=== PATIENT | female | born 1985 | race American Indian/Alaskan Native ===

== ENCOUNTER 2017-07-24 18:57 | Emergency (ER) | payer BC ==
[2017-07-24] MEDS ORDERED: Sodium Chloride 0.9% 10 ML Syringe FLUSH PRN (19:33)
[2017-07-24] MEDS ORDERED: Ketorolac 30 MG/ML SDV IVPUSH ONE (19:33)
--- NOTE | 2017-07-24 19:36 | EDM.PDOC ---
ED HPI GENERAL MEDICAL PROBLEM - General Chief Complaint: [employer] Problem Stated Complaint: MEDICAL VIA [facility] Time Seen by Provider: 07/24/17 19:23 Source of Information: Reports: Patient, Old Records, RN Notes Reviewed History Limitations: Reports: No Limitations - History of Present Illness INITIAL COMMENTS - FREE TEXT/NARRATIVE: EMS arrival, met here with her fianc and mother Received hydromorphone 0.5 mg and ondansetron 4 mg prior to arrival IV gland Chief complaint Abdominal pain 32-year-old female [facility] just before 2 PM this afternoon. Assessment she got home she had fairly sudden onset of bilateral upper abdominal pain associated with nausea but no vomiting or diarrhea. Unable to get comfortable. No effect of pain on breathing. No diarrhea no bowel movement today. Urination is more frequent smaller amounts today. No history of similar pain previously No vaginal bleeding or discharge No analgesics taken at home Lower Abdomen Pain Score (Numeric/FACES): 9 - Related Data Allergies Allergy/AdvReac Type Severity Reaction Status Date / Time No Known Allergies Allergy Verified 07/24/17 19:13 Home Meds: Home Meds Iron,Carbonyl [Iron Chews] 15 mg PO DAILY 07/24/17 [History] Pnv No.95/Ferrous Fum/Folic AC [ Multivitamin Tablet] 1 each PO DAILY [History] Past Medical History SU[employer] History: Reports: Musculoskeletal History: Reports: Fracture Hematologic History: Reports: Anemia, B12 Deficiency - Past Surgical History GI Surgical History: Reports: Bariatric Procedure Musculoskeletal Surgical History: Reports: Other (See Below) Other Musculoskeletal Surgeries/Procedures:: left arm fracture with surgery Social & Family History - Tobacco Use Smoking Status *Q: Never Smoker - Caffeine Use Caffeine Use: Reports: None - Recreational Drug Use Recreational Drug Use: No ED ROS GENERAL - Review of Systems Review Of Systems: See Below Constitutional: Reports: No Symptoms HEENT: Reports: No Symptoms Respiratory: Reports: No Symptoms Cardiovascular: Reports: No Symptoms GI/Abdominal: Reports: Abdominal Pain, Decreased Appetite, Nausea. Denies: Constipation, Diarrhea, Vomiting : Reports: Frequency, Other (Urinating smaller amounts). Denies: Dysuria, Flank Pain, Hematuria, Pain Musculoskeletal: Reports: No Symptoms Skin: Reports: No Symptoms Neurological: Reports: No Symptoms ED EXAM, GI/ABD - Physical Exam Exam: See Below Exam Limited By: No Limitations General Appearance: Alert, Anxious, Mild Distress, Other (Moaning and restless, vital signs within normal limits, difficulty speaking when the spells of pain become more intense) Eyes: Bilateral: Normal Appearance, EOMI Ears: Normal External Exam, Hearing Grossly Normal Nose: Normal Inspection Throat/Mouth: Normal Inspection, Normal Oropharynx, Normal Voice Head: Atraumatic, Normocephalic Neck: Normal Inspection Respiratory/Chest: No Respiratory Distress, Lungs Clear, Normal Breath Sounds, No Accessory Muscle Use Cardiovascular: Normal Peripheral Pulses, Regular Rate, Rhythm GI/Abdominal Exam: Normal Bowel Sounds, Soft, Tender (Bilateral upper quadrants) , Mass (Gravid uterus), Other ( heart rate 138). No: Rigid, Rebound Back Exam: Normal Inspection Extremities: Normal Inspection, Non-Tender Neurological: Alert, Oriented, No Motor/Sensory Deficits Psychiatric: Anxious Skin Exam: Warm, Dry, Intact, Normal Color Lymphatic: No Adenopathy Course - Vital Signs Last Recorded V/S: Last Vital Signs Temp 36.3 C 07/24/17 19:08 Pulse 91 07/24/17 21:54 Resp 16 07/24/17 20:37 BP 115/69 07/24/17 21:54 Pulse Ox 99 07/24/17 21:54 - Orders/Labs/Meds Orders: Active Orders 24 hr Category Date Time Status Peripheral IV Care [RC] . DIRECTED Care 07/24/17 19:33 Active Abdomen Ltd [US] Stat Exams 07/24/17 21:04 Taken Metoclopramide [Reglan] Med 07/24/17 22:43 Once 10 mg PO ONETIME ONE Sodium Chloride 0.9% [Normal Saline] 1,000 ml Med 07/24/17 19:45 Active IV ASDIRECTED Sodium Chloride 0.9% [Saline Flush] Med 07/24/17 19:33 Active 10 ml FLUSH ASDIRECTED PRN Peripheral IV Insertion Adult [OM.PC] Routine Oth 07/24/17 19:33 Ordered Medication Orders Sodium Chloride (Normal Saline) 1,000 mls @ 125 mls/hr IV ASDIRECTED MADELIN Last Admin: 07/24/17 19:53 Dose: 125 mls/hr Sodium Chloride (Saline Flush) 10 ml FLUSH ASDIRECTED PRN PRN Reason: Keep Vein Open Labs: Laboratory Tests 07/24/17 07/24/17 07/24/17 Range/Units 19:46 19:46 19:53 WBC 14.2 H (4.5-11.0) K/uL RBC 4.79 (3.30-5.50) M/uL Hgb 13.5 (12.0-15.0) g/dL Hct 40.0 (36.0-48.0) % MCV 84 (80-98) fL MCH 28 (27-31) pg MCHC 34 (32-36) % Plt Count 253 (150-400) K/uL Sodium 141 (140-148) mmol/L Potassium 3.7 (3.6-5.2) mmol/L Chloride 106 (100-108) mmol/L Carbon Dioxide 25 (21-32) mmol/L Anion Gap 10.3 (5.0-14.0) mmol/L BUN 6 L (7-18) mg/dL Creatinine 0.5 L (0.6-1.0) mg/dL Est Cr Clr Drug Dosing 168.95 mL/min Estimated GFR (MDRD) > 60 (>60) Glucose 120 H (74-106) mg/dL Calcium 8.2 L (8.5-10.1) mg/dL Total Bilirubin 0.4 (0.2-1.0) mg/dL AST 19 (15-37) U/L ALT 13 (12-78) U/L Alkaline Phosphatase 72 (46-116) U/L Total Protein 6.5 (6.4-8.2) g/dL Albumin 3.0 L (3.4-5.0) g/dL Globulin 3.5 (2.3-3.5) g/dL Albumin/Globulin Ratio 0.9 L (1.2-2.2) Lipase 74 (73-393) U/L Urine Color Yellow Urine Appearance Cloudy Urine pH 5.0 (4.5-8.0) Ur Specific [place] 1.030 (1.008-1.030) Urine Protein Negative (NEGATIVE) mg/dL Urine Glucose (UA) Normal (NEGATIVE) mg/dL Urine Ketones 150 H (NEGATIVE) mg/dL Urine Occult Blood Negative (NEGATIVE) Urine Nitrite Negative (NEGATIVE) Urine Bilirubin Negative (NEGATIVE) Urine Urobilinogen Normal (NORMAL) mg/dL Ur Leukocyte Esterase Negative (NEGATIVE) Urine RBC 0-5 (0-5) Urine WBC 0-5 (0-5) Ur Epithelial Cells Many Amorphous Sediment Not seen Urine Bacteria Rare Urine Mucus Many Urine Other Meds: Medications Generic Name Dose Route Start Last Admin Trade Name Benson PRN Reason Stop Dose Admin Sodium Chloride 1,000 mls @ 125 mls/hr 07/24/17 19:45 07/24/17 19:53 Normal Saline IV 125 mls/hr ASDIRECTED MADELIN Administration Sodium Chloride 10 ml 07/24/17 19:33 Saline Flush FLUSH ASDIRECTED PRN Keep Vein Open Discontinued Medications Generic Name Dose Route Start Last Admin Trade Name Freq PRN Reason Stop Dose Admin Ketorolac Tromethamine 15 mg 07/24/17 19:33 07/24/17 19:53 Toradol IVPUSH 07/24/17 19:34 15 mg ONETIME ONE Administration - Re-Assessments/Exams Free Text/Narrative Re-Assessment/Exam: 07/24/17 19:34 32-year-old female at 16 weeks gestation her first with fairly sudden onset of abdominal pain about 5 hours ago, shortly after her routine visit. Differential diagnosis includes biliary colic, renal colic, colitis, gastroenteritis among others Has already received hydromorphone 0.5 mg and ondansetron 4 mg from EMS Continue normal saline Toradol 15 mg IV 07/24/17 21:05 Appears more relaxed at this time, still has some discomfort Urinalysis normal Hepatic profile normal Elevated white count 14.6 but this is not uncommon in Ultrasound abdomen limited ordered 07/24/17 22:44 Ultrasound negative for gallstones, has had this previously There is considerable gas buildup Has not had a bowel movement today so likely has some degree of bile he is probably -induced No signs of any other acute injury, surgery no acute abdomen on exam although she is diffusely tender with no focal tenderness Much more comfortable at this time, will discharge home Start Reglan 10 mg by mouth 3 times a day to help with bowel movements High-fiber diet Follow-up with provider Departure - Departure Time of Disposition: 22:44 Disposition: Home, Self-Care 01 Condition: Good Clinical Impression: Abdominal pain during in second trimester, Motility disorder of intestine - Discharge Information Instructions: Abdominal Pain During , [id number] Referrals: Katie Lee CNM [Primary Care Provider] - Forms: ED Department Discharge Additional Instructions: Abdominal pain, examination tonight does not show any significant abnormalities on testing Nevertheless you do have generalized abdominal pain. There appears to be slow down in the intestine, this is common with Drink plenty of fluids A higher fiber diet rich in vegetables fruits and whole grains can help keep your intestinal transit regular You are being prescribed a few tablets of metoclopramide which helps with nausea and and also helps with intestinal movements. EKG continue to have pain in discomfort in , make sure you contact your provider - My Orders Last 24 Hours: My Active Orders 07/24/17 19:33 Peripheral IV Care [RC] . DIRECTED Sodium Chloride 0.9% [Saline Flush] 10 ml FLUSH ASDIRECTED PRN Peripheral IV Insertion Adult [OM.PC] Routine 07/24/17 19:45 Sodium Chloride 0.9% [Normal Saline] 1,000 ml IV ASDIRECTED 07/24/17 21:04 Qustreet Ltd [US] Stat 07/24/17 22:43 Metoclopramide [Reglan] 10 mg PO ONETIME ONE - Assessment/Plan Last 24 Hours: My Active Orders 07/24/17 19:33 Peripheral IV Care [RC] . DIRECTED Sodium Chloride 0.9% [Saline Flush] 10 ml FLUSH ASDIRECTED PRN Peripheral IV Insertion Adult [OM.PC] Routine 07/24/17 19:45 Sodium Chloride 0.9% [Normal Saline] 1,000 ml IV ASDIRECTED 07/24/17 21:04 Abdomen BlackArrow [US] Stat 07/24/17 22:43 Metoclopramide [Reglan] 10 mg PO ONETIME ONE
[2017-07-24] MEDS ORDERED: Sodium Chloride 0.9% 1,000 ML IV SCH (19:45)
[2017-07-24] MEDS ORDERED: Metoclopramide 10 MG Tab PO ONE (22:43)
== END 2017-07-24 23:16 | disposition home or self-care (01) ==
LOC: JP.ED 18:57
DX: O99.612 Diseases of the digestive system complicating pregnancy, second trimester (principal); K59.9 Functional intestinal disorder, unspecified; R10.11 Right upper quadrant pain; Z79.899 Other long term (current) drug therapy; Z3A.16 16 weeks gestation of pregnancy
CPT/HCPCS: 36415; 76705; 80053; 81001; 83690; 85027; 96361; 96374; 99284; A9270; J1885; J7040

== ENCOUNTER 2017-07-28 07:47 | Emergency (ER) | payer BC ==
[2017-07-28] MEDS ORDERED: Bisacodyl 10 MG Supp RECTAL ONE (08:32)
[2017-07-28] MEDS ORDERED: Polyethylene Glycol 3350 Powder 17 GM Packet PO ONE (08:33)
--- NOTE | 2017-07-28 08:41 | EDM.PDOC ---
ED HPI GENERAL MEDICAL PROBLEM - General Chief Complaint: Gastrointestinal Problem Stated Complaint: stomach pain with vomiting Time Seen by Provider: 07/28/17 08:25 Source of Information: Reports: Patient, RN History Limitations: Reports: No Limitations - History of Present Illness INITIAL COMMENTS - FREE TEXT/NARRATIVE: 32 yo female in the first trimester of an IUP presents with no BM since early in the week and vomiting if she eats or drinks anything. Saw her provider during the week and was prescribed Miralax without benefit. Has not tried enemas at home. Is on Iron supplements which is likely worsening her constipation. Emesis material is not fecal like, rather it looks like bile. Abdomen is tender, but not distended. Onset: Gradual Onset Date: 07/17/17 Duration: Day(s):, Getting Worse Location: Reports: Abdomen Quality: Reports: Ache Severity: Mild Improves with: Reports: None Worsens with: Reports: Eating (or drinking) Context: Reports: Other ( and on Iron supplementation) Associated Symptoms: Reports: Loss of Appetite, Nausea/Vomiting (no current nausea.). Denies: Fever/Chills Treatments TEST DESIGNER: Reports: Other (see below) (Miralax, not today) - Related Data Allergies Allergy/AdvReac Type Severity Reaction Status Date / Time No Known Allergies Allergy Verified 07/24/17 19:13 Home Meds: Home Meds Iron,Carbonyl [Iron Chews] 15 mg PO DAILY 07/24/17 [History] Metoclopramide HCl [Reglan] 10 mg PO TID PRN #10 tablet 07/24/17 [Rx] Pnv No.95/Ferrous Fum/Folic AC [ Multivitamin Tablet] 1 each PO DAILY [History] Promethazine [Phenadoz] 25 mg RECTAL Q6H PRN #10 supp 07/28/17 [Rx] Past Medical History [employer] History: Reports: Musculoskeletal History: Reports: Fracture Hematologic History: Reports: Anemia, B12 Deficiency - Past Surgical History GI Surgical History: Reports: Bariatric Procedure Musculoskeletal Surgical History: Reports: Other (See Below) Other Musculoskeletal Surgeries/Procedures:: left arm fracture with surgery Social & Family History - Tobacco Use Smoking Status *Q: Never Smoker - Caffeine Use Caffeine Use: Reports: None - Recreational Drug Use Recreational Drug Use: No ED ROS GENERAL - Review of Systems Review Of Systems: See Below Constitutional: Reports: No Symptoms HEENT: Reports: No Symptoms Respiratory: Reports: No Symptoms Cardiovascular: Reports: No Symptoms Endocrine: Reports: No Symptoms GI/Abdominal: Reports: Abdominal Pain, Constipation, Decreased Appetite, Nausea , Vomiting. Denies: Black Stool, Bloody Stool, Diarrhea, Difficulty Swallowing , Distension, Flatus, Hematemesis, Hematochezia, Melena : Reports: No Symptoms Musculoskeletal: Reports: No Symptoms Skin: Reports: No Symptoms Neurological: Reports: No Symptoms ED EXAM, GI/ABD - Physical Exam Exam: See Below Exam Limited By: No Limitations General Appearance: Alert, WD/WN, No Apparent Distress, Obese Eyes: Bilateral: Normal Appearance Ears: Normal External Exam, Normal Canal, Hearing Grossly Normal Nose: Normal Inspection, Normal Mucosa, No Blood Throat/Mouth: Normal Inspection, Normal Lips, Normal Oropharynx, Normal Voice, No Airway Compromise Head: Atraumatic, Normocephalic Neck: Normal Inspection Respiratory/Chest: No Respiratory Distress, Lungs Clear, Normal Breath Sounds, No Accessory Muscle Use Cardiovascular: Regular Rate, Rhythm, No Edema GI/Abdominal Exam: Normal Bowel Sounds, Soft, No Distention, Tender (mild diffuse, worse on the L side consistent with her descending colon. ) Back Exam: Normal Inspection Extremities: Normal Inspection, Normal Range of Motion, Non-Tender, No Pedal Edema Neurological: Alert, Oriented, CN II-XII Intact, Normal Cognition, No Motor/ Sensory Deficits Psychiatric: Normal Affect, Normal Mood Skin Exam: Warm, Dry, Intact, Normal Color, No Rash Lymphatic: No Adenopathy Course - Vital Signs Text/Narrative:: Got good relief with promethazine, not so much with the Zofran. No results with Dulcolax, only minimal stool out with enema. Last Recorded V/S: Last Vital Signs Temp 36.8 C 07/28/17 08:07 Pulse 100 07/28/17 08:07 Resp 14 07/28/17 08:07 BP 123/62 07/28/17 08:07 Pulse Ox 98 07/28/17 08:07 Orthostatic Blood Pressure [ 125/75 Standing] Orthostatic Blood Pressure [ 124/68 Sitting] Orthostatic Blood Pressure [ 123/64 Supine] - Orders/Labs/Meds Orders: Active Orders 24 hr Category Date Time Status Orthostatic Vital Signs [RC] ASDIRECTED Care 07/28/17 08:35 Active Meds: Medications Discontinued Medications Generic Name Dose Route Start Last Admin Trade Name Benson PRN Reason Stop Dose Admin Bisacodyl 10 mg 07/28/17 08:32 07/28/17 09:00 Dulcolax RECTAL 07/28/17 08:33 10 mg ONETIME ONE Administration Lactated Ringer's 1,000 mls @ 1,000 mls/hr 07/28/17 09:54 07/28/17 10:25 Ringers, Lactated IV 07/28/17 10:53 1,000 mls/hr BOLUS ONE Administration Lactated Ringer's 1,000 mls @ 1,000 mls/hr 07/28/17 11:46 07/28/17 12:34 Ringers, Lactated IV 07/28/17 12:45 1,000 mls/hr BOLUS ONE Administration Promethazine HCl 12.5 mg/ 50.5 mls @ 200 mls/hr 07/28/17 11:47 07/28/17 12:34 Sodium Chloride IV 07/28/17 12:02 Not Given NOW STA Promethazine HCl 12.5 mg/ 50.5 mls @ 150 mls/hr 07/28/17 12:30 07/28/17 12:34 Sodium Chloride IV 07/28/17 12:50 150 mls/hr NOW ONE Administration Magnesium Citrate 296 ml 07/28/17 13:57 07/28/17 14:17 Citrate Of Magnesia PO 07/28/17 13:58 296 ml ONETIME ONE Administration Ondansetron HCl 4 mg 07/28/17 09:13 07/28/17 09:21 Zofran Odt PO 07/28/17 09:14 4 mg ONETIME ONE Administration Polyethylene Glycol 34 gm 07/28/17 08:33 07/28/17 09:00 Miralax PO 07/28/17 08:34 34 gm ONETIME ONE Administration Sodium Biphosphate/Sodium Phosphate 133 ml 07/28/17 09:56 07/28/17 10:26 Fleet Enema RECTAL 07/28/17 09:57 133 ml ONETIME ONE Administration Departure - Departure Time of Disposition: 08:30 Disposition: Home, Self-Care 01 Condition: Good Clinical Impression: Dehydration Constipation Qualifiers: Constipation type: unspecified constipation type Qualified Code(s): K59.00 - Constipation, unspecified Nausea & vomiting Qualifiers: Vomiting type: unspecified Vomiting Intractability: non-intractable Qualified Code(s): R11.2 - Nausea with vomiting, unspecified - Discharge Information Prescriptions: Promethazine [Phenadoz] 25 mg RECTAL Q6H PRN #10 supp PRN Reason: Nausea Instructions: Constipation, Adult, [id number] Referrals: Nadja Alvarado PA [Primary Care Provider] - Forms: ED Department Discharge Additional Instructions: Take promethazine as needed for nausea. Drink the magnesium citrate bottle provided today. Take as much Miralax daily as you need to induce regular, soft stools. Recheck with your provider early in the week. OK to do Fleets enemas at home if needed. - My Orders Last 24 Hours: My Active Orders 07/28/17 08:35 Orthostatic Vital Signs [RC] ASDIRECTED - Assessment/Plan Last 24 Hours: My Active Orders 07/28/17 08:35 Orthostatic Vital Signs [RC] ASDIRECTED
[2017-07-28] MEDS ORDERED: Ondansetron 4 MG Tab.DIS PO ONE (09:13)
[2017-07-28] MEDS ORDERED: Lactated Ringers 1,000 ML IV ONE ×2 (09:54→11:46)
[2017-07-28] MEDS ORDERED: Sodium Phosphate,Monobasic/Sodium Phosphate,Dibasic Enema 133 ML Bottle RECTAL ONE (09:56)
[2017-07-28] MEDS ORDERED: Promethazine 12.5 MG in Sodium Chloride 0.9% 50 ML IV STA (11:47)
[2017-07-28] MEDS ORDERED: Promethazine 12.5 MG in Sodium Chloride 0.9% 50 ML IV ONE (12:30)
[2017-07-28] MEDS ORDERED: Magnesium Citrate Solution 296 ML Bottle PO ONE (13:57)
== END 2017-07-28 14:27 | disposition home or self-care (01) ==
LOC: JP.ED 07:47
DX: E86.0 Dehydration (principal); K59.00 Constipation, unspecified; R11.2 Nausea with vomiting, unspecified
CPT/HCPCS: 82271; 96361; 96365; 99284; A9270; J2550; J7050; J7120

== ENCOUNTER 2018-10-09 05:47 | Emergency (ER) | payer SELFPAY ==
--- NOTE | 2018-10-09 06:35 | EDM.PDOC ---
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 She is not taking anything for pain she is approximately 9 weeks intrauterine states she has had her initial ultrasound however those records are not available at this time. She does have a follow-up appointment with her OB in 2 days. No vaginal bleeding no discharge no cramping Treatments DYE TUB TENDER: Reports: Other (see below) Other Treatments DYE TUB TENDER: none Left groin Pain Score (Numeric/FACES): 6 - Related Data Allergies Allergy/AdvReac Type Severity Reaction Status Date / Time No Known Allergies Allergy Verified 10/09/18 06:03 Home Meds: Home Meds Iron,Carbonyl [Iron Chews] 15 mg PO DAILY 07/24/17 [History] Pnv No.95/Ferrous Fum/Folic AC [ Multivitamin Tablet] 1 each PO DAILY [History] Cyanocobalamin (Vitamin B-12) [Vitamin B-12] 1 tab PO DAILY 12/13/17 [History] Vitamin B Complex/Folic Acid [Vitamin B-100 Complex] 1 tab PO DAILY 12/13/17 [ History] Acyclovir 400 mg PO TID 12/20/17 [History] Past Medical History 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: Musculoskeletal History: Reports: Fracture Psychiatric History: Reports: Depression, Eating Disorders, Other (See Below) Other Psychiatric History: alcohol syndrome Hematologic History: Reports: Anemia, B12 Deficiency - Infectious Disease History Infectious Disease History: Reports: Chicken Pox, Herpes - Past Surgical History GI Surgical History: Reports: Bariatric Procedure Musculoskeletal Surgical History: Reports: Other (See Below) Other Musculoskeletal Surgeries/Procedures:: left arm fracture with surgery Social & Family History - Family History Family Medical History: Noncontributory - Tobacco Use Smoking Status *Q: Never Smoker Second Hand Smoke Exposure: No - Caffeine Use Caffeine Use: Reports: Soda - Recreational Drug Use Recreational Drug Use: No ED ROS GENERAL - Review of Systems Review Of Systems: See Below Constitutional: Reports: No Symptoms Respiratory: Reports: No Symptoms Cardiovascular: Reports: No Symptoms GI/Abdominal: Reports: Abdominal Pain : Reports: No Symptoms ED EXAM, GI/ABD - Physical Exam Exam: See Below Exam Limited By: No Limitations General Appearance: Alert, WD/WN, No Apparent Distress Respiratory/Chest: No Respiratory Distress GI/Abdominal Exam: Normal Bowel Sounds, Soft, Non-Tender, Other (Obese) Course - Vital Signs Last Recorded V/S: Last Vital Signs Temp 98.0 F 10/09/18 06:14 Pulse 84 10/09/18 06:14 Resp 14 10/09/18 06:14 BP 119/69 10/09/18 06:14 Pulse Ox 98 10/09/18 06:14 Departure - Departure Time of Disposition: 06:36 Disposition: Home, Self-Care 01 Condition: Fair Clinical Impression: Abdominal wall pain - Discharge Information Referrals: Nadja Alvarado PA [Primary Care Provider] - Forms: ED Department Discharge Additional Instructions: Use Tylenol as needed for pain control, please keep your appointment with your OB on Sunday - Assessment/Plan Plan: Assessment Acuity = acute Site and laterality = abdominal pain complicated than that in a patient that is currently 9 weeks Etiology = secondary lifting injury Manifestations = none Location of injury = work Lab values = none Plan Recommend symptomatic care at this time Tylenol as needed for pain control follow-up with primary care provider on Sunday of this week paperwork was completed This note was dictated using [employer] voice recognition software please call with any questions on syntax or grammar.
== END 2018-10-09 06:47 | disposition home or self-care (01) ==
LOC: JP.ED 05:47
DX: O99.89 Other specified diseases and conditions complicating pregnancy, childbirth and the puerperium (principal); R10.32 Left lower quadrant pain; Z79.899 Other long term (current) drug therapy; Z3A.09 9 weeks gestation of pregnancy; X50.0XXA Overexertion from strenuous movement or load, initial encounter
CPT/HCPCS: 99283

== ENCOUNTER 2019-01-01 01:29 | Emergency (ER) | payer SELFPAY ==
[2019-01-01] MEDS ORDERED: Acetaminophen 500 MG Tab PO ONE (03:14)
--- NOTE | 2019-01-01 03:14 | EDM.PDOC ---
ED HPI GENERAL MEDICAL PROBLEM - General Chief Complaint: Back Pain or Injury Stated Complaint: BACK PAIN Time Seen by Provider: 01/01/19 03:09 Source of Information: Reports: Patient History Limitations: Reports: No Limitations - History of Present Illness INITIAL COMMENTS - FREE TEXT/NARRATIVE: 33 years old female patient presents to the ER with a chief complaint of low back pain. 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 Slightly to the right. No radiation. Denies any weakness or numbness in her legs. No perineal numbness. Denies any urinary symptom. No loss of control of urine or stool. Denies any fall or any other injuries. Pain is worse with bending twisting. Better when she stays still. She is to anywhere in weeks' . Denies any vaginal discharge or bleeding. Denies any abdominal pain. Denies any chest pain shortness breath. The patient was up in the OB floor for baby monitoring and was cleared. Back Pain Score (Numeric/FACES): 8 - Related Data Allergies Allergy/AdvReac Type Severity Reaction Status Date / Time No Known Allergies Allergy Verified 01/01/19 03:07 Home Meds: Home Meds Iron,Carbonyl [Iron Chews] 15 mg PO DAILY 07/24/17 [History] Pnv No.95/Ferrous Fum/Folic AC [ Multivitamin Tablet] 1 each PO DAILY [History] Cyanocobalamin (Vitamin B-12) [Vitamin B-12] 1 tab PO DAILY 12/13/17 [History] Vitamin B Complex/Folic Acid [Vitamin B-100 Complex] 1 tab PO DAILY 12/13/17 [ History] Acyclovir 400 mg PO TID 12/20/17 [History] Past Medical History Genitourinary History: Reports: Pyelonephritis LAUNDRY AID History: Reports: Musculoskeletal History: Reports: Fracture Psychiatric History: Reports: Depression, Eating Disorders Other Psychiatric History: alcohol syndrome Hematologic History: Reports: Anemia, B12 Deficiency, Folic Acid, Iron Deficiency - Infectious Disease History Infectious Disease History: Reports: Chicken Pox, Herpes - Past Surgical History GI Surgical History: Reports: Bariatric Procedure Musculoskeletal Surgical History: Reports: Other (See Below) Other Musculoskeletal Surgeries/Procedures:: left arm fracture with surgery Social & Family History - Family History Family Medical History: Noncontributory - Tobacco Use Smoking Status *Q: Never Smoker - Caffeine Use Caffeine Use: Reports: Soda - Recreational Drug Use Recreational Drug Use: No ED ROS GENERAL - Review of Systems Review Of Systems: ROS reveals no pertinent complaints other than HPI. ED EXAM,LOWER BACK PAIN/INJURY - Physical Exam Exam: See Below Exam Limited By: No Limitations General Appearance: Alert, WD/WN, No Apparent Distress Ears: Normal External Exam, Normal Canal, Hearing Grossly Normal, Normal TMs Nose: Normal Inspection, Normal Mucosa, No Blood Throat/Mouth: Normal Inspection, Normal Lips, Normal Teeth, Normal Gums, Normal Oropharynx, Normal Voice, No Airway Compromise Head: Atraumatic, Normocephalic Neck: Normal Inspection, Supple, Non-Tender, Full Range of Motion Respiratory/Chest: No Respiratory Distress, Lungs Clear, Normal Breath Sounds, No Accessory Muscle Use, Chest Non-Tender Cardiovascular: Normal Peripheral Pulses, Regular Rate, Rhythm, No Edema, No Gallop, No JVD, No Murmur, No Rub GI/Abdominal: Normal Bowel Sounds, Soft, Non-Tender, No Organomegaly, No Distention, No Abnormal Bruit, No Mass Back Exam: Normal Inspection, Decreased Range of Motion, Muscle Spasm, Paraspinal Tenderness. No: CVA Tenderness (R), CVA Tenderness (L), Vertebral Tenderness Extremities: Normal Inspection, Normal Range of Motion, Non-Tender, No Pedal Edema, Normal Capillary Refill Neurological: Alert, Normal Mood/Affect, Normal Dorsiflexion, CN II-XII Intact, Normal Plantar Flexion, Normal Gait, Normal Reflexes, No Motor/Sensory Deficits , Oriented x 3 Psychiatric: Normal Affect, Normal Mood Skin Exam: Warm, Dry, Intact, Normal Color, No Rash Lymphatic: No Adenopathy Course - Vital Signs Last Recorded V/S: Last Vital Signs Temp 36.2 C 01/01/19 03:00 Pulse 73 01/01/19 03:00 Resp 16 01/01/19 03:00 BP 145/82 H 01/01/19 03:00 Pulse Ox 99 01/01/19 03:00 - Re-Assessments/Exams Free Text/Narrative Re-Assessment/Exam: 01/01/19 03:12 patient was seen and examined shortly after arrival. Stable. This is most likely muscle sprain/strain no radiculopathy. She is so she refused imaging at this point. She also refused any narcotic. Was given 1 g of Tylenol. Advised no heavy lifting, ice pack or heat pack, close follow-up with PCP, Tylenol for pain, come back if symptom worsen. Patient was given off work for 2 days until reevaluation by primary doctor for further instruction regarding work comp restriction. Advised to come back if symptom worsen. Patient agrees with the plan. Stable for discharge. Departure - Departure Time of Disposition: 03:14 Disposition: Home, Self-Care 01 Condition: Good, Fair Clinical Impression: Low back pain - Discharge Information *PRESCRIPTION DRUG MONITORING PROGRAM REVIEWED*: Not Applicable *COPY OF PRESCRIPTION DRUG MONITORING REPORT IN PATIENT BI: Not Applicable Referrals: Katie Lee CNM [Primary Care Provider] - Additional Instructions: Advised no heavy lifting, ice pack or heat pack, close follow-up with PCP, Tylenol for pain, come back if symptom worsen. Patient was given off work for 2 days until reevaluation by primary doctor for further instruction regarding work comp restriction. Advised to come back if symptom worsen. - Assessment/Plan Plan: Advised no heavy lifting, ice pack or heat pack, close follow-up with PCP, Tylenol for pain, come back if symptom worsen. Patient was given off work for 2 days until reevaluation by primary doctor for further instruction regarding work comp restriction. Advised to come back if symptom worsen.
== END 2019-01-01 03:37 | disposition home or self-care (01) ==
LOC: JP.ED 01:29
DX: M54.5 Low back pain (principal); M62.830 Muscle spasm of back; Z79.899 Other long term (current) drug therapy
CPT/HCPCS: 99283; A9270; 99282

== ENCOUNTER 2019-05-01 23:52 | Inpatient (IN) | payer BC ==
[2019-05-02] MEDS ORDERED: Acetaminophen 325 MG Tab PO PRN (00:48)
[2019-05-02] MEDS ORDERED: Sodium Chloride 0.9% 10 ML Syringe FLUSH PRN ×2 (00:48→01:12)
[2019-05-02] MEDS ORDERED: Ondansetron 4 MG/2 ML SDV IV PRN (00:48)
--- NOTE | 2019-05-02 01:09 | PCM.LDHP ---
L&D History of Present Illness - General Date of Service: 05/02/19 Admit Problem/Dx: Patient Status Order with Admit Dx/Problem 05/02/19 00:30 Admission Status [Patient Status] [ADT] Routine 05/02/19 00:48 Patient Status [ADT] Routine Admission Diagnosis/Problem Admission Diagnosis/Problem - Related Data Allergies/Adverse Reactions: Allergies Allergy/AdvReac Type Severity Reaction Status Date / Time No Known Allergies Allergy Verified 01/01/19 03:07 Home Medications: Home Meds Iron,Carbonyl [Iron Chews] 15 mg PO DAILY 07/24/17 [History] Pnv No.95/Ferrous Fum/Folic AC [ Multivitamin Tablet] 1 each PO DAILY [History] Cyanocobalamin (Vitamin B-12) [Vitamin B-12] 1 tab PO DAILY 12/13/17 [History] Vitamin B Complex/Folic Acid [Vitamin B-100 Complex] 1 tab PO DAILY 12/13/17 [ History] Acyclovir 400 mg PO TID 12/20/17 [History] Past Medical History Genitourinary History: Reports: Pyelonephritis 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: Musculoskeletal History: Reports: Fracture Psychiatric History: Reports: Depression, Eating Disorders Other Psychiatric History: alcohol syndrome Hematologic History: Reports: Anemia, B12 Deficiency, Folic Acid, Iron Deficiency - Infectious Disease History Infectious Disease History: Reports: Chicken Pox, Herpes - Past Surgical History GI Surgical History: Reports: Bariatric Procedure Musculoskeletal Surgical History: Reports: Other (See Below) Other Musculoskeletal Surgeries/Procedures:: left arm fracture with surgery Social & Family History - Family History Family Medical History: Noncontributory - Caffeine Use Caffeine Use: Reports: Soda H&P Review of Systems - Review of Systems: Review Of Systems: See Below General: Reports: No Symptoms HEENT: Reports: No Symptoms Pulmonary: Reports: No Symptoms Cardiovascular: Reports: No Symptoms Gastrointestinal: Reports: No Symptoms Genitourinary: Reports: No Symptoms Musculoskeletal: Reports: No Symptoms Skin: Reports: No Symptoms Psychiatric: Reports: No Symptoms Neurological: Reports: No Symptoms Hematologic/Lymphatic: Reports: No Symptoms Immunologic: Reports: No Symptoms L&D Exam - Exam Exam: See Below - Vital Signs Vital Signs: Last Vital Signs Temp 36.6 C 05/02/19 00:42 Pulse 85 05/02/19 00:42 Resp 18 05/02/19 00:42 BP 137/99 H 05/02/19 00:42 Pulse Ox 97 05/02/19 00:42 - OB Specific Contraction Duration (sec): 40-80 Contraction Frequency (min): 1-2 Contraction Intensity: Mild to Moderate Movement: Active Heart Tones: Present Heart Rate (FHR) Variability: Moderate (6-25 bmp) Presentation: Vertex - Thomas Score Thomas Score Cervix Position: Anterior Thomas Score Consistency: Soft Thomas Score Effacement: >80% Thomas Score Dilation: 3-4 cm Thomas Score Infant's Station: -1 ,0 Thomas Score Total: 11 - Exam General: Alert, Oriented, Cooperative HEENT: PERRLA, Conjunctiva Clear, EACs Clear, EOMI, Hearing Intact, Mucosa Moist & Start, Nares Patent, Normal Nasal Septum, Posterior Pharynx Clear, TMs Clear Neck: Supple, Trachea Midline Lungs: Clear to Auscultation, Normal Respiratory Effort Cardiovascular: Regular Rate, Regular Rhythm GI/Abdominal Exam: Normal Bowel Sounds, Soft, Non-Tender, No Organomegaly, No Distention, No Abnormal Bruit, No Mass, Pelvis Stable Rectal Exam: Normal Exam, Normal Rectal Tone Genitourinary: Normal external exam, Normal bimanual exam, Normal speculum exam Back Exam: Normal Inspection, Full Range of Motion Extremities: Normal Inspection, Normal Range of Motion, Non-Tender, No Pedal Edema, Normal Capillary Refill Skin: Warm, Dry, Intact Neurological: Cranial Nerves Intact, Reflexes Equal Bilateral Psychiatric: Alert, Normal Affect, Normal Mood - Patient Data Lab Results Last 24 hrs: Laboratory Results - last 24 hr 05/02/19 05/02/19 05/02/19 Range/Units 00:30 00:31 00:35 WBC 9.9 (4.5-11.0) K/uL RBC 4.89 (3.30-5.50) M/uL Hgb 10.6 L (12.0-15.0) g/dL Hct 35.0 L (36.0-48.0) % MCV 72 L (80-98) fL MCH 22 L (27-31) pg MCHC 30 L (32-36) % Plt Count 290 (150-400) K/uL Neut % (Auto) 70 H (36-66) % Lymph % (Auto) 23 L (24-44) % [place] % (Auto) 6 (2-6) % Eos % (Auto) 1 L (2-4) % Baso % (Auto) 0 (0-1) % Urine Color Yellow (YELLOW) Urine Appearance Cloudy A (CLEAR) Urine pH 6.0 (5.0-8.0) Ur Specific [place] >= 1.030 (1.008-1.030) Urine Protein 30 H (NEGATIVE) mg/dL Urine Glucose (UA) Negative (NEGATIVE) mg/dL Urine Ketones 15 H (NEGATIVE) mg/dL Urine Occult Blood Small H (NEGATIVE) Urine Nitrite Negative (NEGATIVE) Urine Bilirubin Small H (NEGATIVE) Urine Urobilinogen 1.0 (0.2-1.0) EU/dL Ur Leukocyte Esterase Negative (NEGATIVE) Urine RBC 0-5 (0-5) Urine WBC 0-5 (0-5) Ur Epithelial Cells Moderate Amorphous Sediment Not seen Urine Bacteria Moderate Urine Mucus Few Membrane Rupture Positive H (NEGATIVE) Result Diagrams: 05/02/19 00:35 - Problem List (1) SNOMED Code(s): 09923769 ICD Code: Z34.90 - ENCNTR FOR SUPRVSN OF NORMAL , UNSP, UNSP TRIMESTER Status: Acute Current Visit: Yes Qualifiers: Weeks of gestation: 39 weeks Qualified Code(s): Z3A.39 - 39 weeks gestation of (2) Obesity complicating in third trimester SNOMED Code(s): 264834707567, 671791806050 ICD Code: O99.213 - OBESITY COMPLICATING , THIRD TRIMESTER Status : Acute Current Visit: Yes (3) History of shoulder dystocia in prior SNOMED Code(s): 607772086 ICD Code: Z87.59 - PERSONAL HISTORY OF COMP OF PREG, CHLDBRTH AND THE PUERP Status: Acute Current Visit: Yes (4) History of retained placenta in prior , currently SNOMED Code(s): 430609726, 149682022, 697044370 ICD Code: O09.299 - SUPRVSN OF PREG W POOR REPRODCTV OR OBSTET HISTORY, UNSP TRI Status: Acute Current Visit: Yes (5) Thin meconium stained amniotic fluid SNOMED Code(s): 999463502 ICD Code: P96.83 - MECONIUM STAINING Status: Acute Current Visit: Yes (6) SROM (spontaneous rupture of membranes) SNOMED Code(s): 535446421 ICD Code: [id number] - Status: Acute Current Visit: Yes (7) Labor established SNOMED Code(s): 43651492 ICD Code: CVL1900 - Status: Acute Current Visit: Yes (8) HSV infection Status: Acute Current Visit: Yes Problem List Initiated/Reviewed/Updated: Yes Orders Last 24hrs: Active Orders 24 hr Category Date Time Status Admission Status [Patient Status] [ADT] Routine ADT 05/02/19 00:30 Active Patient Status [ADT] Routine ADT 05/02/19 00:48 Ordered Ambulate [RC] PER UNIT ROUTINE Care 05/02/19 00:48 Ordered Antiembolic Devices [RC] .Routine Care 05/02/19 00:53 Ordered Communication Order [RC] ASDIRECTED Care 05/02/19 00:48 Ordered Heart Tones [RC] PER UNIT ROUTINE Care 05/02/19 00:48 Ordered Non Stress Test [RC] Click to Edit Care 05/02/19 00:48 Ordered Notify Provider Vital Signs [RC] PRN Care 05/02/19 00:48 Ordered Notify Provider [RC] PRN Care 05/02/19 00:48 Ordered Up ad Angelita [RC] ASDIRECTED Care 05/02/19 00:48 Ordered VTE/DVT Education [RC] Click to Edit Care 05/02/19 00:53 Ordered Vital Signs [RC] PER UNIT ROUTINE Care 05/02/19 00:48 Ordered COMPREHENSIVE METABOLIC PN,CMP [CHEM] Routine Lab 05/02/19 00:31 Ordered Acetaminophen [Tylenol] Med 05/02/19 00:48 Ordered 650 mg PO Q4H PRN Ondansetron [Zofran] Med 05/02/19 00:48 Ordered 4 mg IV Q4H PRN Sodium Chloride 0.9% [Saline Flush] Med 05/02/19 00:48 Ordered 10 ml FLUSH ASDIRECTED PRN DVT/VTE Prophylaxis Reflex [OM.PC] Routine Oth 05/02/19 00:48 Ordered Saline Lock Insert [OM.PC] Routine Oth 05/02/19 00:48 Ordered Resuscitation Status Routine Resus Stat 05/02/19 00:48 Ordered Medication Orders Acetaminophen (Tylenol) 650 mg PO Q4H PRN PRN Reason: Pain (Mild 1-3) and fever Ondansetron HCl (Zofran) 4 mg IV Q4H PRN PRN Reason: Nausea/Vomiting Sodium Chloride (Saline Flush) 10 ml FLUSH ASDIRECTED PRN PRN Reason: Keep Vein Open Assessment/Plan Comment:: 05/02/2019 33 yo at 39 0/7 weeks gestation came in tonight with SROM at home SVE-4-5/80/-1 Amnisure positive-meconium stained fluid Ike regular FHTs category one hgb-10.6, platelet 290 Obesity in History of shoulder dystocia and retained placenta with last delivery History of HSV-on valtrex Plan- Admit to labor and delivery Routine labor orders Up ad angelita Continuous monitoring Epidural for pain medication per patient request IV fluids LR bolus per epidural orders Plan and anticipate a vaginal delivery
[2019-05-02] MEDS ORDERED: diphenhydrAMINE 50 MG/ML SDV IVPUSH PRN ×2 (01:12)
[2019-05-02] MEDS ORDERED: ePHEDrine 50 MG/ML SDV IVPUSH PRN ×2 (01:12)
[2019-05-02] MEDS ORDERED: Naloxone 0.4 MG/ML SDV IVPUSH PRN (01:12)
[2019-05-02] MEDS ORDERED: Lactated Ringers 1,000 ML IV ONE (01:12)
[2019-05-02] MEDS ORDERED: Ropivacaine 200 MG in Premix Bag 1 BAG EPIDUR SCH (01:15)
[2019-05-02] MEDS ORDERED: Ropivacaine 100 ML ONE (01:27)
--- NOTE | 2019-05-02 03:59 | ANES ---
DATE OF SERVICE: 05/02/2019 I was called in the middle of night for a lady in labor requesting a labor epidural. I was at the bedside at approximately 0050. A brief history and physical was done with the patient. The patient denies any heart issues and denies any abnormal bleeding disorders that requires blood thinners. Platelet count was found to be 290 on arrival. Overall, healthy for the patient. Risks and benefits were reviewed with the patient. The patient verbalizes her understanding and wishes to proceed with labor epidural. The patient was then sat at the edge of the bed. Betadine prep x3 to the lumbar region was done. Sterile drape was placed. 1% lidocaine skin wheal and deep was done. A 17-gauge Tuohy needle was inserted at approximately the L4-L5 position. Loss of resistance was achieved. Negative paresthesia, negative heme, and negative CSF were noted. Loss of resistance was approximately at about 9 to 10 cm, full length of the Tuohy needle. Catheter was easily threaded through the [place], Tuohy was then withdrawn, and catheter was pulled back and secured at approximately 17 cm. A 4 mL test dose was then given. Catheter was fully secured with tape. The patient was laid down in supine position with left uterine displacement. Several minutes after the test dose, the patient showed no sign of local anesthetic toxicity, intravascular injection or subarachnoid injection of the local anesthetic. I then proceeded to give the patient 12 mL of 0.2% ropivacaine bolus via the epidural and started her on a 0.2% ropivacaine drip at 12 mL an hour. The patient tolerated the procedure without difficulty. Blood pressure maintained throughout. We will continue to monitor the patient as needed. Jayson Quiñones CRNA /[id number]
[2019-05-02] MEDS ORDERED: Acetaminophen 325 MG Tab, 50 Tab Bulk Bottle PO PRN (04:45)
[2019-05-02] MEDS ORDERED: Docusate Sodium 100 MG Cap PO PRN (04:45)
[2019-05-02] MEDS ORDERED: Witch Hazel Medicated Pads 100/Jar TOP ONE (04:45)
[2019-05-02] MEDS ORDERED: Lanolin 100% Cream 40 GM Tube TOP ONE (04:45)
[2019-05-02] MEDS ORDERED: Benzocaine 20% Top Spray 56 GM Bottle TOP ONE (04:45)
[2019-05-02] MEDS ORDERED: Ibuprofen 200 MG Tab, 24 Tab Bulk Bottle PO PRN (04:45)
--- NOTE | 2019-05-02 05:14 | PCM.DEL ---
L & D Note - General Info Date of Service: 05/02/19 Mother's Due Date: 05/09/19 - Delivery Note Labor: Spontaneous Delivery Outcome: Livebirth Infant Delivery Method: Spontaneous Vaginal Delivery-Single Infant Delivery Mode: Spontaneous Presentation: Left Occiput Anterior (BLU) Nuchal Cord: None Anesthesia Type: Epidural Amniotic Fluid Description: Meconium Stained Episiotomy Type: None Laceration: None Placenta: Intact, Spontaneous, Meconium Stained Cord: 3 Vessels Estimated Blood Loss: 200 Resuscitation Needed: No : Bulb Syringe, Warmed, [place] Used Score 1 min: 8 Score 5 min: 9 Second Stage Interventions: Reports: Second Nurse Assessed Progress of Descent, Second Nurse Reviewed Contraction Pattern, Second Nurse Reviewed Heart Tones, Encouragement Given, Laboring Down, Pushing Effectively, Pushing, McRobert's Position Delivery Comments (Free Text/Narrative):: 05/02/2019 33 yo at 39 0/7 gestational weeks delivered a viable male infant in BLU position normal spontaneous vaginal at 0433 on 05/02/2019 over and intact perineum. Infant then was placed on prewarmed blanket on mothers abdomen, cord was notedly shorter so was left lower on abdomen for delayed cord clamping. Delayed cord clamping done for approximately one minute. Then cord was double clamped and cut by the father of the . was bulb suctioned, warmed and dried. Infant cried vigorously and pinked in color. APGARS-8/9, weight- 8lbs 0oz, length-20.5 inches. Placenta then spontaneously came, intact, meconium stained, EBL-200, Baby now skin to skin with mother and both are stable in labor and delivery room. Stages of labor- [id number] - General Info Date of Service: 05/02/19 Functional Status: Reports: Pain Controlled - Review of Systems General: Reports: No Symptoms HEENT: Reports: No Symptoms Pulmonary: Reports: No Symptoms Cardiovascular: Reports: No Symptoms Gastrointestinal: Reports: No Symptoms Genitourinary: Reports: No Symptoms Musculoskeletal: Reports: No Symptoms Skin: Reports: No Symptoms Neurological: Reports: No Symptoms Psychiatric: Reports: No Symptoms - Patient Data Vitals - Most Recent: Last Vital Signs Temp 36.6 C 05/02/19 00:42 Pulse 96 05/02/19 03:45 Resp 18 05/02/19 03:48 BP 115/94 H 05/02/19 03:48 Pulse Ox 99 05/02/19 03:45 Weight - Most Recent: 134.263 kg Lab Results Last 24 Hours: Laboratory Results - last 24 hr 05/02/19 05/02/19 05/02/19 Range/Units 00:30 00:31 00:35 WBC 9.9 (4.5-11.0) K/uL RBC 4.89 (3.30-5.50) M/uL Hgb 10.6 L (12.0-15.0) g/dL Hct 35.0 L (36.0-48.0) % MCV 72 L (80-98) fL MCH 22 L (27-31) pg MCHC 30 L (32-36) % Plt Count 290 (150-400) K/uL Neut % (Auto) 70 H (36-66) % Lymph % (Auto) 23 L (24-44) % [place] % (Auto) 6 (2-6) % Eos % (Auto) 1 L (2-4) % Baso % (Auto) 0 (0-1) % Sodium (140-148) mmol/L Potassium (3.6-5.2) mmol/L Chloride (100-108) mmol/L Carbon Dioxide (21-32) mmol/L Anion Gap (5.0-14.0) mmol/L BUN (7-18) mg/dL Creatinine (0.6-1.0) mg/dL Est Cr Clr Drug Dosing Estimated GFR (MDRD) (>60) Glucose (74-106) mg/dL Calcium (8.5-10.1) mg/dL Total Bilirubin (0.2-1.0) mg/dL AST (15-37) U/L ALT (12-78) U/L Alkaline Phosphatase (46-116) U/L Total Protein (6.4-8.2) g/dL Albumin (3.4-5.0) g/dL Globulin (2.3-3.5) g/dL Albumin/Globulin Ratio (1.2-2.2) Urine Color Yellow (YELLOW) Urine Appearance Cloudy A (CLEAR) Urine pH 6.0 (5.0-8.0) Ur Specific [place] >= 1.030 (1.008-1.030) Urine Protein 30 H (NEGATIVE) mg/dL Urine Glucose (UA) Negative (NEGATIVE) mg/dL Urine Ketones 15 H (NEGATIVE) mg/dL Urine Occult Blood Small H (NEGATIVE) Urine Nitrite Negative (NEGATIVE) Urine Bilirubin Small H (NEGATIVE) Urine Urobilinogen 1.0 (0.2-1.0) EU/dL Ur Leukocyte Esterase Negative (NEGATIVE) Urine RBC 0-5 (0-5) Urine WBC 0-5 (0-5) Ur Epithelial Cells Moderate Amorphous Sediment Not seen Urine Bacteria Moderate Urine Mucus Few Membrane Rupture Positive H (NEGATIVE) 05/02/19 Range/Units 00:35 WBC (4.5-11.0) K/uL RBC (3.30-5.50) M/uL Hgb (12.0-15.0) g/dL Hct (36.0-48.0) % MCV (80-98) fL MCH (27-31) pg MCHC (32-36) % Plt Count (150-400) K/uL Neut % (Auto) (36-66) % Lymph % (Auto) (24-44) % [place] % (Auto) (2-6) % Eos % (Auto) (2-4) % Baso % (Auto) (0-1) % Sodium 138 L (140-148) mmol/L Potassium 3.2 L (3.6-5.2) mmol/L Chloride 104 (100-108) mmol/L Carbon Dioxide 21 (21-32) mmol/L Anion Gap 16.2 H (5.0-14.0) mmol/L BUN 3 L (7-18) mg/dL Creatinine 0.5 L (0.6-1.0) mg/dL Est Cr Clr Drug Dosing TNP Estimated GFR (MDRD) > 60 (>60) Glucose 102 (74-106) mg/dL Calcium 8.0 L (8.5-10.1) mg/dL Total Bilirubin 0.3 (0.2-1.0) mg/dL AST 13 L (15-37) U/L ALT 6 L (12-78) U/L Alkaline Phosphatase 274 H (46-116) U/L Total Protein 6.8 (6.4-8.2) g/dL Albumin 2.6 L (3.4-5.0) g/dL Globulin 4.2 H (2.3-3.5) g/dL Albumin/Globulin Ratio 0.6 L (1.2-2.2) Urine Color (YELLOW) Urine Appearance (CLEAR) Urine pH (5.0-8.0) Ur Specific [place] (1.008-1.030) Urine Protein (NEGATIVE) mg/dL Urine Glucose (UA) (NEGATIVE) mg/dL Urine Ketones (NEGATIVE) mg/dL Urine Occult Blood (NEGATIVE) Urine Nitrite (NEGATIVE) Urine Bilirubin (NEGATIVE) Urine Urobilinogen (0.2-1.0) EU/dL Ur Leukocyte Esterase (NEGATIVE) Urine RBC (0-5) Urine WBC (0-5) Ur Epithelial Cells Amorphous Sediment Urine Bacteria Urine Mucus Membrane Rupture (NEGATIVE) Med Orders - Current: Current Medications Acetaminophen (Tylenol Bulk Bottle) 325 - 650 mg PO Q4H PRN PRN Reason: Pain Diphenhydramine HCl (Benadryl) 25 mg IVPUSH Q6H PRN PRN Reason: Itching Diphenhydramine HCl (Benadryl) 50 mg IVPUSH Q6H PRN PRN Reason: Itching Docusate Sodium (Colace) 100 mg PO BID PRN PRN Reason: Constipation Ephedrine Sulfate (Ephedrine Sulfate) 10 mg IVPUSH ASDIRECTED PRN PRN Reason: Hypotension Ropivacaine 200 mg/ Premix 100 mls @ 0 mls/hr EPIDUR ASDIRECTED MADELIN Oxytocin/Sodium Chloride (Pitocin In Ns 20 Units/1,000 Ml) 20 unit in 1,000 mls @ 6 mls/hr IV TITRATE MADELIN; Protocol Last Titration: 05/02/19 03:53 Dose: 12 mls/hr Ibuprofen (Motrin Bulk Bottle) 600 mg PO Q6H PRN PRN Reason: Pain Naloxone HCl (Narcan) 0.1 mg IVPUSH ASDIRECTED PRN PRN Reason: Oversedation Ondansetron HCl (Zofran) 4 mg IV Q4H PRN PRN Reason: Nausea/Vomiting Last Admin: 05/02/19 03:50 Dose: 4 mg Prenat Multivit/Roughener/Iron/Folic Ac ( Plus Iron) 1 each PO DAILY MADELIN Sodium Chloride (Saline Flush) 10 ml FLUSH ASDIRECTED PRN PRN Reason: Keep Vein Open Discontinued Medications Acetaminophen (Tylenol) 650 mg PO Q4H PRN PRN Reason: Pain (Mild 1-3) and fever Benzocaine (Luft-R-Nederfq 20% Hope) 0 gm TOP ONETIME ONE Stop: 05/02/19 04:46 Emollient Ointment (Lansinoh Hpa) 1 gm TOP ONETIME ONE Stop: 05/02/19 04:46 Ephedrine Sulfate (Ephedrine Sulfate) 10 mg IVPUSH ASDIRECTED PRN PRN Reason: Hypotension Lactated Ringer's (Ringers, Lactated) 1,000 mls @ 999 mls/hr IV .BOLUS ONE Stop: 05/02/19 02:12 Last Admin: 05/02/19 01:51 Dose: 999 mls/hr Ropivacaine (Naropin 0.2%) Confirm Administered Dose 100 mls @ as directed .ROUTE .STK-MED ONE Stop: 05/02/19 01:28 Sodium Chloride (Saline Flush) 10 ml FLUSH ASDIRECTED PRN PRN Reason: Keep Vein Open [place] Amberly (Tucks) 1 pad TOP ONETIME ONE Stop: 05/02/19 04:46 - Exam General: Alert, Oriented, Cooperative HEENT: Pupils Equal, Pupils Reactive, EOMI, Mucous Membr. Moist/[place] Neck: Supple Lungs: Clear to Auscultation, Normal Respiratory Effort Cardiovascular: Regular Rate, Regular Rhythm GI/Abdominal Exam: Normal Bowel Sounds, Soft, Non-Tender, No Organomegaly, No Distention, No Abnormal Bruit, No Mass, Pelvis Stable (Female) Exam: Normal External Exam, Normal Speculum Exam, Normal Bimanual Exam, Enlarged Uterus, Vaginal Bleeding Back Exam: Normal Inspection, Full Range of Motion Extremities: Normal Inspection, Normal Range of Motion, Non-Tender, No Pedal Edema, Normal Capillary Refill Skin: Warm, Dry, Intact Wound/Incisions: Healing Well Neurological: No New Focal Deficit Psy/Mental Status: Alert, Normal Affect, Normal Mood - Problem List & Annotations (1) SNOMED Code(s): 04279352 Code(s): Z34.90 - ENCNTR FOR SUPRVSN OF NORMAL , UNSP, UNSP TRIMESTER Status: Acute Current Visit: Yes Qualifiers: Weeks of gestation: 39 weeks Qualified Code(s): Z3A.39 - 39 weeks gestation of (2) Obesity complicating in third trimester SNOMED Code(s): 679855173051, 661315352111 Code(s): O99.213 - OBESITY COMPLICATING , THIRD TRIMESTER Status: Acute Current Visit: Yes (3) History of shoulder dystocia in prior SNOMED Code(s): 952083105 Code(s): Z87.59 - PERSONAL HISTORY OF COMP OF PREG, CHLDBRTH AND THE PUERP Status: Acute Current Visit: Yes (4) History of retained placenta in prior , currently SNOMED Code(s): 800363572, 481069615, 714141991 Code(s): O09.299 - SUPRVSN OF PREG W POOR REPRODCTV OR OBSTET HISTORY, UNSP TRI Status: Acute Current Visit: Yes (5) Thin meconium stained amniotic fluid SNOMED Code(s): 330923418 Code(s): P96.83 - MECONIUM STAINING Status: Acute Current Visit: Yes (6) SROM (spontaneous rupture of membranes) SNOMED Code(s): 690096867 Code(s): BLM2010 - Status: Acute Current Visit: Yes (7) Labor established SNOMED Code(s): 21382713 Code(s): VYJ4553 - Status: Acute Current Visit: Yes (8) HSV infection Status: Acute Current Visit: Yes (9) Vaginal delivery SNOMED Code(s): 620250734 Code(s): O80 - ENCOUNTER FOR FULL-TERM UNCOMPLICATED DELIVERY Status: Acute Current Visit: Yes (10) History of gastric bypass SNOMED Code(s): 536741256 Code(s): Z98.84 - BARIATRIC SURGERY STATUS Status: Acute Current Visit: Yes - Problem List Review Problem List Initiated/Reviewed/Updated: Yes - My Orders Last 24 Hours: My Active Orders 05/02/19 00:30 Admission Status [Patient Status] [ADT] Routine 05/02/19 00:48 Patient Status [ADT] Routine Ambulate [RC] PER UNIT ROUTINE Communication Order [RC] ASDIRECTED Heart Tones [RC] PER UNIT ROUTINE Non Stress Test [RC] Click to Edit Notify Provider Vital Signs [RC] PRN Notify Provider [RC] PRN Up ad Samantha [RC] ASDIRECTED Ondansetron [Zofran] 4 mg IV Q4H PRN DVT/VTE Prophylaxis Reflex [OM.PC] Routine Saline Lock Insert [OM.PC] Routine Resuscitation Status Routine 05/02/19 00:53 Antiembolic Devices [RC] .Routine VTE/DVT Education [RC] Click to Edit 05/02/19 01:12 Communication Order [RC] ASDIRECTED Communication Order [RC] ROUTINE Communication Order [RC] ROUTINE Communication Order [RC] ROUTINE Local Anesthetic Infusion Pump [RC] ASDIRECTED Oxygen Therapy [RC] ASDIRECTED Pulse Oximetry [RC] ASDIRECTED Vital Signs [RC] PER UNIT ROUTINE Naloxone [Narcan] 0.1 mg IVPUSH ASDIRECTED PRN Sodium Chloride 0.9% [Saline Flush] 10 ml FLUSH ASDIRECTED PRN diphenhydrAMINE [Benadryl] 25 mg IVPUSH Q6H PRN diphenhydrAMINE [Benadryl] 50 mg IVPUSH Q6H PRN ePHEDrine [ePHEDrine sulfate] 10 mg IVPUSH ASDIRECTED PRN Epidural Catheter Management [OM.PC] Routine Epidural Catheter Management [OM.PC] Urgent Peripheral IV Insertion Pediatric [OM.PC] Routine 05/02/19 01:14 PCEA Epidural [RC] ASDIRECTED Peripheral IV Care [RC] . DIRECTED Urinary Catheter Assessment [RC] ASDIRECTED 05/02/19 01:15 Insert Urinary Catheter [OM.PC] ASDIRECTED Ropivacaine [Naropin 0.2%] 200 mg Premix Bag 1 bag EPIDUR ASDIRECTED 05/02/19 01:45 Oxytocin/Normal Saline [Pitocin in NS 20 Units/1,000 ML] 20 unit in 1,000 ml IV TITRATE 05/02/19 04:45 Patient Status [ADT] Routine Vital Signs [RC] PFP Acetaminophen [Tylenol Bulk Bottle] 325 - 650 mg PO Q4H PRN Docusate Sodium [Colace] 100 mg PO BID PRN Ibuprofen [Motrin Bulk Bottle] 600 mg PO Q6H PRN Assess Lochia [WOMSER] Per Unit Routine Assess Uterine Involution [WOMSER] Per Unit Routine 05/02/19 04:46 Perineal Care [OM.PC] Per Unit Routine Sitz Bath [OM.PC] Per Unit Routine 05/02/19 09:00 Vit with Ca/FA/Iron [ Plus Iron] 1 each PO DAILY 05/02/19 Breakfast Regular Diet [DIET] 05/03/19 06:00 CBC WITH AUTO DIFF [HEME] Routine - Assessment Assessment:: 05/02/2019 33 yo G2 now P2 delivered without complications Meconium stained fluid - Plan Plan:: 05/02/2019 33 yo at 39 0/7 weeks gestation came in tonight with SROM at home SVE-4-5/80/-1 Amnisure positive-meconium stained fluid Ike regular FHTs category one hgb-10.6, platelet 290 Obesity in History of shoulder dystocia and retained placenta with last delivery 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
[2019-05-02] MEDS: Prenatal Multivitamin with Calcium/Folic Acid/Iron Tab PO SCH (10:14)
--- NOTE | 2019-05-03 08:38 | PCM.PNPP ---
- General Info Date of Service: 05/03/19 Functional Status: Reports: Pain Controlled - Review of Systems General: Reports: No Symptoms HEENT: Reports: No Symptoms Pulmonary: Reports: No Symptoms Cardiovascular: Reports: No Symptoms Gastrointestinal: Reports: No Symptoms Genitourinary: Reports: No Symptoms Musculoskeletal: Reports: Back Pain (chronic) Skin: Reports: No Symptoms Neurological: Reports: No Symptoms Psychiatric: Reports: No Symptoms - General Info Date of Service: 05/03/19 - Patient Data Vital Signs - Most Recent: Last Vital Signs Temp 36.2 C 05/03/19 07:47 Pulse 66 05/03/19 07:47 Resp 18 05/03/19 07:47 BP 108/86 05/03/19 04:46 Pulse Ox 97 05/03/19 07:47 Weight - Most Recent: 134.263 kg Lab Results - Last 24 Hours: Laboratory Results - last 24 hr 05/03/19 Range/Units 05:40 WBC 7.0 (4.5-11.0) K/uL RBC 4.55 (3.30-5.50) M/uL Hgb 10.0 L (12.0-15.0) g/dL Hct 33.0 L (36.0-48.0) % MCV 73 L (80-98) fL MCH 22 L (27-31) pg MCHC 30 L (32-36) % Plt Count 247 (150-400) K/uL Neut % (Auto) 71 H (36-66) % Lymph % (Auto) 22 L (24-44) % [place] % (Auto) 6 (2-6) % Eos % (Auto) 1 L (2-4) % Baso % (Auto) 0 (0-1) % Med Orders - Current: Current Medications Acetaminophen (Tylenol Bulk Bottle) 325 - 650 mg PO Q4H PRN PRN Reason: Pain Last Admin: 05/02/19 06:10 Dose: 1 bottle Diphenhydramine HCl (Benadryl) 50 mg IVPUSH Q6H PRN PRN Reason: Itching Docusate Sodium (Colace) 100 mg PO BID PRN PRN Reason: Constipation Oxytocin/Sodium Chloride (Pitocin In Ns 20 Units/1,000 Ml) 20 unit in 1,000 mls @ 6 mls/hr IV TITRATE MADELIN; Protocol Last Titration: 05/02/19 03:53 Dose: 12 mls/hr Ibuprofen (Motrin Bulk Bottle) 600 mg PO Q6H PRN PRN Reason: Pain Last Admin: 05/02/19 06:08 Dose: 1 bottle Naloxone HCl (Narcan) 0.1 mg IVPUSH ASDIRECTED PRN PRN Reason: Oversedation Ondansetron HCl (Zofran) 4 mg IV Q4H PRN PRN Reason: Nausea/Vomiting Last Admin: 05/02/19 03:50 Dose: 4 mg Prenat Multivit/Ballast Cleaning Machine Operator/Iron/Folic Ac ( Plus Iron) 1 each PO DAILY MADELIN Last Admin: 05/02/19 10:14 Dose: 1 each Sodium Chloride (Saline Flush) 10 ml FLUSH ASDIRECTED PRN PRN Reason: Keep Vein Open Discontinued Medications Acetaminophen (Tylenol) 650 mg PO Q4H PRN PRN Reason: Pain (Mild 1-3) and fever Benzocaine (Iezn-R-Tszggvj 20% [place]) 0 gm TOP ONETIME ONE Stop: 05/02/19 04:46 Last Admin: 05/02/19 06:09 Dose: 1 bottle Diphenhydramine HCl (Benadryl) 25 mg IVPUSH Q6H PRN PRN Reason: Itching Emollient Ointment (Lansinoh Hpa) 1 gm TOP ONETIME ONE Stop: 05/02/19 04:46 Last Admin: 05/02/19 06:09 Dose: 1 bottle Ephedrine Sulfate (Ephedrine Sulfate) 10 mg IVPUSH ASDIRECTED PRN PRN Reason: Hypotension Ephedrine Sulfate (Ephedrine Sulfate) 10 mg IVPUSH ASDIRECTED PRN PRN Reason: Hypotension Lactated Ringer's (Ringers, Lactated) 1,000 mls @ 999 mls/hr IV .BOLUS ONE Stop: 05/02/19 02:12 Last Admin: 05/02/19 01:51 Dose: 999 mls/hr Ropivacaine 200 mg/ Premix 100 mls @ 0 mls/hr EPIDUR ASDIRECTED MADELIN Ropivacaine (Naropin 0.2%) Confirm Administered Dose 100 mls @ as directed .ROUTE .STK-MED ONE Stop: 05/02/19 01:28 Sodium Chloride (Saline Flush) 10 ml FLUSH ASDIRECTED PRN PRN Reason: Keep Vein Open [place] Gaming (Tucks) 1 pad TOP ONETIME ONE Stop: 05/02/19 04:46 Last Admin: 05/02/19 06:08 Dose: 1 bottle - Infant Interaction Disposition, : [place] in Room with Family Infant Interaction: Holding Infant Feeding: Breastfed Infant; Nursed Well Support Person: Significant Other - Recovery Exam Fundal Tone: Firm Fundal Level: 3 Fingerbreadths Below Umbilicus Fundal Placement: Midline Lochia Amount: Small, Moderate Lochia Color: Rubra/Red Perineum Description: Intact, Minimal Bruising/Swelling Episiotomy/Laceration: None Bladder Status: Nonpalpable, Voiding Urinary Elimination: Voided - Exam General: Alert, Oriented HEENT: Pupils Equal Neck: Supple Lungs: Clear to Auscultation, Normal Respiratory Effort Cardiovascular: Regular Rate, Regular Rhythm GI/Abdominal Exam: Normal Bowel Sounds, Soft, Non-Tender, No Organomegaly, No Distention, No Mass, Pelvis Stable Extremities: Normal Inspection, Normal Range of Motion, Non-Tender, No Pedal Edema, Normal Capillary Refill Skin: Warm, Dry, Intact Wound/Incisions: Healing Well Neurological: No New Focal Deficit Psy/Mental Status: Alert, Normal Affect, Normal Mood - Problem List & Annotations (1) HSV infection Status: Acute Current Visit: Yes (2) History of gastric bypass SNOMED Code(s): 671221556 Code(s): Z98.84 - BARIATRIC SURGERY STATUS Status: Acute Current Visit: Yes (3) Obesity complicating in third trimester SNOMED Code(s): 772890344313, 325997083683 Code(s): O99.213 - OBESITY COMPLICATING , THIRD TRIMESTER Status: Acute Current Visit: Yes (4) SNOMED Code(s): 08163715 Code(s): Z34.90 - ENCNTR FOR SUPRVSN OF NORMAL , UNSP, UNSP TRIMESTER Status: Acute Current Visit: Yes Qualifiers: Weeks of gestation: 39 weeks Qualified Code(s): Z3A.39 - 39 weeks gestation of (5) SROM (spontaneous rupture of membranes) SNOMED Code(s): 509107501 Code(s): JCH6384 - Status: Acute Current Visit: Yes (6) Thin meconium stained amniotic fluid SNOMED Code(s): 513157004 Code(s): P96.83 - MECONIUM STAINING Status: Acute Current Visit: Yes (7) Vaginal delivery SNOMED Code(s): 962281560 Code(s): O80 - ENCOUNTER FOR FULL-TERM UNCOMPLICATED DELIVERY Status: Acute Current Visit: Yes - Problem List Review Problem List Initiated/Reviewed/Updated: Yes - Assessment Assessment:: 05/02/2019 33 yo G2 now P2 delivered without complications Meconium stained fluid 05/03/19 Day 1 pp, no complications FF bleeding light going well Chronic back pain with sciatica is better today than yesterday pt reports has pump at home Hgb 10.0 down from 10.6 AVSS - Plan Plan:: 05/02/2019 33 yo at 39 0/7 weeks gestation came in tonight with SROM at home SVE-4-5/80/-1 Amnisure positive-meconium stained fluid Ike regular FHTs category one hgb-10.6, platelet 290 Obesity in History of shoulder dystocia and retained placenta with last delivery 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
[2019-05-03] MEDS: Prenatal Multivitamin with Calcium/Folic Acid/Iron Tab PO SCH (10:12)
== END 2019-05-03 11:30 | disposition home or self-care (01) | DRG 560 ==
LOC: JP.OBCHECK 23:52 → JP.OB 05-02 00:30 → UNDOADMOB 05-02 00:30 → JP.OB 05-02 04:30 → OBSVTOIN 05-02 04:33 → JP.MS 05-02 09:45 → UNDODISOB 05-03 11:30
PROVIDERS: ADMIT Advanced Practice Midwife; ATTEND Advanced Practice Midwife
PROC: 10E0XZZ Delivery of Products of Conception, External Approach (ICD-10-PCS; principal; 2019-05-02)
PROC: 3E0R3BZ Introduction of Anesthetic Agent into Spinal Canal, Percutaneous Approach (ICD-10-PCS; 2019-05-02)
PROC: 00HU33Z Insertion of Infusion Device into Spinal Canal, Percutaneous Approach (ICD-10-PCS; 2019-05-02)
DX: O99.214 Obesity complicating childbirth (principal); E66.9 Obesity, unspecified; O77.0 Labor and delivery complicated by meconium in amniotic fluid; Z87.59 Personal history of other complications of pregnancy, childbirth and the puerperium; Z98.84 Bariatric surgery status; Z3A.39 39 weeks gestation of pregnancy; Z37.0 Single live birth
CPT/HCPCS: 36415; 51702; 59409; 80053; 81001; 84112; 85025; 99211; A9270-GY; J2405; J2590; J2795; J7120